=== PATIENT | female | born 1965 | race Caucasian/White ===

== ENCOUNTER 2021-04-09 18:12 | Emergency (ER) | payer BC ==
[2021-04-09 18:20] VITALS: TEMP 98.4
--- NOTE | 2021-04-09 19:14 | ED ---
Headache HPI - General Chief Complaint: Headache Stated Complaint: headache Time Seen by Provider: 04/09/21 18:45 Mode of arrival: ambulatory Limitations: no limitations - History of Present Illness Initial Comments: Patient is a 55-year-old female with a past medical history of migraine who presents to the emergency department with a chief complaint of headache. Patient reports that the headache started yesterday as she was helping her mother who is a patient here on the third floor at [facility]. Patient reports a bilateral headache behind the eyes, typical of her migraines. She reports photophobia. Patient denies visual symptoms such as blurry vision or diplopia. Patient took Ubrelvy, Talcott and 2 650 mg Tylenol today with no relief. Patient reports that she has been more stressed due to her mom. Patient denies weight loss, fever, chills, shortness of breath, cough, chest pain, and abdominal pain. She denies personal or family history of brain aneurysm. - Related Data Home Medications Medication Instructions Recorded Confirmed ALPRAZolam [Xanax] 0.5 mg PO BID PRN 10/08/20 10/08/20 Ergocalciferol (Vitamin D2) 1,250 mcg PO WEEKLY 10/08/20 10/08/20 [Drisdol (50,000 Iu)] Galcanezumab-Gnlm [Emgality Pen] 120 mg SQ Q30D 10/08/20 10/08/20 HYDROcodone/APAP 10-325MG [Talcott 1 tab PO TID PRN 10/08/20 10/08/20 10-325] Montelukast [Singulair] 10 mg PO DAILY 10/08/20 10/08/20 PARoxetine HCL [Paxil] 40 mg PO DAILY 10/08/20 10/08/20 Ubrogepant [Ubrelvy] 50 mg PO DAILY PRN 10/08/20 10/08/20 Allergies Allergy/AdvReac Type Severity Reaction Status Date / Time No Known Allergies Allergy Verified 04/09/21 18:19 Review of Systems ROS Statement: Those systems with pertinent positive or pertinent negative responses have been documented in the HPI. ROS Other: All systems not noted in ROS Statement are negative. Past Medical History Additional Past Medical History / Comment(s): cataract right eye, closed head injury. History of Any Multi-Drug Resistant Organisms: None Reported Past Surgical History: Orthopedic Surgery Additional Past Surgical History / Comment(s): left knee replacement, bowel surgery, Past Psychological History: No Psychological Hx Reported Smoking Status: Current every day smoker Past Alcohol Use History: None Reported Past Drug Use History: None Reported General Exam Limitations: no limitations General appearance: alert, in no apparent distress Head exam: Present: atraumatic, normocephalic, normal inspection Eye exam: Present: normal appearance, PERRL, EOMI. Absent: scleral icterus, conjunctival injection, periorbital swelling Neck exam: Present: normal inspection Respiratory exam: Present: normal lung sounds bilaterally. Absent: respiratory distress, wheezes, rales, rhonchi, stridor Cardiovascular Exam: Present: regular rate, normal rhythm, normal heart sounds. Absent: systolic murmur, diastolic murmur, rubs, gallop, clicks GI/Abdominal exam: Present: soft, normal bowel sounds. Absent: distended, tenderness, guarding, rebound, rigid Neurological exam: Present: alert, oriented X3, CN II-XII intact Psychiatric exam: Present: normal affect, normal mood Skin exam: Present: warm, dry, intact, normal color. Absent: rash Course Vital Signs 04/09/21 18:17 Temperature 98.4 F Pulse Rate 81 Respiratory 20 Rate Blood Pressure 148/73 O2 Sat by Pulse 100 Oximetry Medical Decision Making - Medical Decision Making This is a 55-year-old female presents with a migraine. Thorough history and examination were performed. Patient given fluid bolus, Benadryl, Solu-Medrol, and Reglan. On reevaluation patient is sleeping in bed. She reports she no longer has a headache. Patient will be discharged. She reports that she is going back upstairs to the third floor to stay tonight with her mother. Return parameters discussed. Patient verbalizes understanding and is agreeable to plan. Dr. Angulo is my attending. Disposition Clinical Impression: Headache Disposition: HOME SELF-CARE Condition: Good Instructions (If sedation given, give patient instructions): Acute Headache (ED) Additional Instructions: Continue to take your migraine medication. Take Tylenol or Motrin as needed for pain. Return to the emergency department if you experience new, concerning, or worsening symptoms Is patient prescribed a controlled substance at d/c from ED?: No Referrals: None,Stated [Primary Care Provider] - 1-2 days Time of Disposition: :23
[2021-04-09] MEDS: METOCLOPRAMIDE 5 MG/ML 2 ML VIAL IVP STA (19:26)
[2021-04-09] MEDS: methylPREDNISolone SOD SUCCI 125 MG/2 ML VIAL IV STA (19:27)
[2021-04-09] MEDS: SODIUM CHLORIDE 0.9% 1,000 ML IV STA (19:27)
[2021-04-09] MEDS: diphenhydrAMINE 50 MG/ML 1 ML VIAL IVP STA (19:27)
[2021-04-09 21:07] VITALS: BP 170/85; PULSE 75; RESP 16
== END 2021-04-09 21:06 | disposition home or self-care (01) ==
LOC: EC 18:12
DX: R51.9 Headache, unspecified (principal); F17.200 Nicotine dependence, unspecified, uncomplicated
CPT/HCPCS: 99283; 96374; 96375; 96361; J1200; J2765; J2930